=== PATIENT | female | born 1955 | race Caucasian/White ===

== ENCOUNTER → 2016-04-10 | Outpatient (CLI) | payer BC ==
[2016-04-10 11:03] LABS: ALT 35 U/L (9-52); AST 22 U/L (14-36); Alkaline Phosphatase 58 U/L (38-126); Anion Gap 10 mmol/L; Blood Urea Nitrogen 11 mg/dL (7-17); Calcium 9.4 mg/dL (8.4-10.2); Carbon Dioxide 31 mmol/L (22-30); Chloride 105 mmol/L (98-107); Glucose 85 mg/dL (74-99); Non-African American GFR(MDRD) >60 (>60 ml/min/1.73 sqM); Potassium 4.3 mmol/L (3.5-5.1); Sodium 146 mmol/L (137-145); Total Bilirubin 0.5 mg/dL (0.2-1.3); Total Protein 7.1 g/dL (6.3-8.2)
== END | disposition home or self-care (01) ==
LOC: LABWHC1 10:06
PROVIDERS: ATTEND Internal Medicine Endocrinology, Diabetes & Metabolism
DX: E03.9 Hypothyroidism, unspecified (principal); M85.80 Other specified disorders of bone density and structure, unspecified site
CPT/HCPCS: 36415; 80053; 82306; 84443

== ENCOUNTER → 2016-09-08 | Outpatient (CLI) | payer BC ==
--- NOTE | 2016-09-08 10:51 | CT ---
EXAMINATION TYPE: CT abdomen pelvis w con DATE OF EXAM: 09/08/2016 COMPARISON: 07/24/2014 HISTORY: Abdominal mass CT DLP: 888 mGycm Automated exposure control for dose reduction was used. CONTRAST: CT scan of the abdomen pelvis is performed with IV Contrast, patient injected with 100 ml mL of Omnip aque 300. FINDINGS- LUNG BASES- No significant abnormality is appreciated. LIVER/GB-stable hepatic lesions most typical of simple cysts. Previous cholecystectomy noted. PANCREAS- No gross abnormality is seen. SPLEEN- No gross abnormality is seen. ADRENALS- No gross abnormality is seen. KIDNEYS/BLADDER- no hydronephrosis nephrolithiasis or renal mass. BOWEL- no bowel dilatation. Normal appendix. LYMPH NODES- No greater than 1cm abdominal or pelvic lymph nodes are appreciated. OSSEOUS STRUCTURES- No significant abnormality is seen. OTHER- retroaortic left renal vein which is somewhat prominent in size IMPRESSION- 1. No acute process, stable hepatic lesions most typical of benign cysts.
== END | disposition home or self-care (01) ==
LOC: RADCTMAIN 09:34
PROVIDERS: ATTEND Internal Medicine Gastroenterology
DX: R19.00 Intra-abdominal and pelvic swelling, mass and lump, unspecified site (principal)
CPT/HCPCS: 74177; Q9967

== ENCOUNTER → 2016-10-09 | Outpatient (CLI) | payer BC ==
[2016-10-09 09:35] LABS: ALT 36 U/L (9-52); AST 26 U/L (14-36); Alkaline Phosphatase 60 U/L (38-126); Anion Gap 10 mmol/L; Blood Urea Nitrogen 15 mg/dL (7-17); Calcium 9.3 mg/dL (8.4-10.2); Carbon Dioxide 28 mmol/L (22-30); Chloride 106 mmol/L (98-107); Glucose 78 mg/dL (74-99); Non-African American GFR(MDRD) >60 (>60 ml/min/1.73 sqM); Potassium 4.1 mmol/L (3.5-5.1); Sodium 144 mmol/L (137-145); Total Bilirubin 0.5 mg/dL (0.2-1.3)
== END | disposition home or self-care (01) ==
LOC: LABWHC1 08:46
PROVIDERS: ATTEND Internal Medicine Endocrinology, Diabetes & Metabolism
DX: E03.8 Other specified hypothyroidism (principal); E87.0 Hyperosmolality and hypernatremia
CPT/HCPCS: 36415; 80053; 84443

== ENCOUNTER → 2017-02-22 | Outpatient (CLI) | payer BC ==
--- NOTE | 2017-02-27 07:13 | MM ---
Reason for exam: screening (asymptomatic). Last mammogram was performed 1 year and 3 months ago. History: Patient is postmenopausal. Implant Removal of both breasts, 1991. Took estrogen for 11 years beginning at age 43. Physical Findings: A clinical breast exam by your physician is recommended on an annual basis and results should be correlated with mammographic findings. MG Screening Mammo w CAD Bilateral CC and MLO view(s) were taken. Prior study comparison: December 07, 2015, bilateral MG screening mammo w CAD. February 09, 2014, bilateral MG screening mammo w CAD. There are scattered fibroglandular densities. Finding: There are stable typically benign dystrophic calcifications in the right breast. No suspicious abnormality. No significant changes in finding since December 07, 2015 and February 09, 2014. ASSESSMENT: Benign, BI-RAD 2 RECOMMENDATION: Routine screening mammogram of both breasts in 1 year.
== END | disposition home or self-care (01) ==
LOC: RADMAMWWP 14:53
PROVIDERS: ATTEND Obstetrics & Gynecology
DX: Z12.31 Encounter for screening mammogram for malignant neoplasm of breast (principal)

== ENCOUNTER → 2017-04-12 | Outpatient (CLI) | payer BC ==
[2017-04-12 10:12] LABS: ALT 23 U/L (9-52); AST 21 U/L (14-36); Albumin 4.1 g/dL (3.5-5.0); Alkaline Phosphatase 61 U/L (38-126); Anion Gap 10 mmol/L; Blood Urea Nitrogen 15 mg/dL (7-17); Calcium 9.7 mg/dL (8.4-10.2); Carbon Dioxide 30 mmol/L (22-30); Chloride 104 mmol/L (98-107); Glucose 93 mg/dL (74-99); Potassium 4.2 mmol/L (3.5-5.1); Sodium 144 mmol/L (137-145); Total Bilirubin 0.3 mg/dL (0.2-1.3); Total Protein 7.1 g/dL (6.3-8.2)
[2017-04-12 18:10] LABS: ACTH 8.06 pg/mL (0.00-45.99)
== END | disposition home or self-care (01) ==
LOC: LABWHC1 09:26
PROVIDERS: ATTEND Internal Medicine Endocrinology, Diabetes & Metabolism
DX: E87.0 Hyperosmolality and hypernatremia (principal); E03.8 Other specified hypothyroidism
CPT/HCPCS: 36415; 80053; 82024; 82533; 84146; 84443; 84588

== ENCOUNTER → 2017-04-25 | Outpatient (CLI) | payer BC ==
[2017-04-25 10:42] LABS: ALT 24 U/L (9-52); AST 19 U/L (14-36); Albumin 4.2 g/dL (3.5-5.0); Alkaline Phosphatase 61 U/L (38-126); Anion Gap 10 mmol/L; Blood Urea Nitrogen 18 mg/dL (7-17); Calcium 9.4 mg/dL (8.4-10.2); Carbon Dioxide 28 mmol/L (22-30); Chloride 104 mmol/L (98-107); Glucose 88 mg/dL (74-99); Potassium 4.1 mmol/L (3.5-5.1); Sodium 142 mmol/L (137-145); Total Bilirubin 0.3 mg/dL (0.2-1.3)
== END | disposition home or self-care (01) ==
LOC: LABWHC1 09:57
PROVIDERS: ATTEND Internal Medicine Endocrinology, Diabetes & Metabolism
DX: E03.8 Other specified hypothyroidism (principal); M85.89 Other specified disorders of bone density and structure, multiple sites; E87.0 Hyperosmolality and hypernatremia
CPT/HCPCS: 36415; 80053; 84588

== ENCOUNTER → 2017-05-14 | Outpatient (CLI) | payer BC ==
[2017-05-14 15:54] LABS: ALT 25 U/L (9-52); AST 22 U/L (14-36); Albumin 4.1 g/dL (3.5-5.0); Alkaline Phosphatase 60 U/L (38-126); Anion Gap 7 mmol/L; Blood Urea Nitrogen 15 mg/dL (7-17); Calcium 9.3 mg/dL (8.4-10.2); Carbon Dioxide 33 mmol/L (22-30); Chloride 102 mmol/L (98-107); Glucose 99 mg/dL (74-99); Potassium 4.2 mmol/L (3.5-5.1); Sodium 142 mmol/L (137-145); Total Bilirubin 0.3 mg/dL (0.2-1.3); Total Protein 6.9 g/dL (6.3-8.2)
== END | disposition home or self-care (01) ==
LOC: LABWHC1 15:06
PROVIDERS: ATTEND Internal Medicine Endocrinology, Diabetes & Metabolism
DX: E03.8 Other specified hypothyroidism (principal)
CPT/HCPCS: 36415; 80053

== ENCOUNTER → 2017-08-17 | Outpatient (CLI) | payer BC | END | disposition home or self-care (01) | LOC: LABWHC1 14:46 | PROVIDERS: ATTEND Internal Medicine Endocrinology, Diabetes & Metabolism | DX: E03.8 Other specified hypothyroidism (principal) | CPT/HCPCS: 36415; 84443 ==

== ENCOUNTER → 2017-08-20 | Outpatient (CLI) | payer BC ==
[2017-08-20 16:29] LABS: ALT 29 U/L (9-52); AST 25 U/L (14-36); Alkaline Phosphatase 57 U/L (38-126); Anion Gap 8 mmol/L; Blood Urea Nitrogen 15 mg/dL (7-17); Calcium 9.3 mg/dL (8.4-10.2); Carbon Dioxide 28 mmol/L (22-30); Chloride 106 mmol/L (98-107); Glucose 97 mg/dL (74-99); Potassium 4.4 mmol/L (3.5-5.1); Sodium 142 mmol/L (137-145); Total Bilirubin 0.2 mg/dL (0.2-1.3); Total Protein 6.7 g/dL (6.3-8.2)
== END | disposition home or self-care (01) ==
LOC: LABWHC1 15:37
PROVIDERS: ATTEND Internal Medicine Endocrinology, Diabetes & Metabolism
DX: E87.0 Hyperosmolality and hypernatremia (principal)
CPT/HCPCS: 36415; 80053

== ENCOUNTER → 2017-12-12 | Outpatient (CLI) | payer BC ==
[2017-12-12 12:19] LABS: ALT 25 U/L (9-52); AST 21 U/L (14-36); Albumin 4.3 g/dL (3.5-5.0); Alkaline Phosphatase 54 U/L (38-126); Anion Gap 10 mmol/L; Blood Urea Nitrogen 14 mg/dL (7-17); Calcium 9.5 mg/dL (8.4-10.2); Carbon Dioxide 30 mmol/L (22-30); Chloride 101 mmol/L (98-107); Glucose 96 mg/dL (74-99); Potassium 4.4 mmol/L (3.5-5.1); Sodium 141 mmol/L (137-145); Total Bilirubin 0.3 mg/dL (0.2-1.3); Total Protein 7.3 g/dL (6.3-8.2)
== END ==
LOC: LABWHC1 10:45
PROVIDERS: ATTEND Internal Medicine Endocrinology, Diabetes & Metabolism
DX: E03.8 Other specified hypothyroidism (principal); E87.0 Hyperosmolality and hypernatremia
CPT/HCPCS: 36415; 80053; 84443

== ENCOUNTER → 2017-12-22 | Outpatient (CLI) | payer BC ==
[2017-12-22 17:30] LABS: LDL Cholesterol,Calculated 100.4 mg/dL (0.0-131.0); VLDL Calculation 21.6 mg/dL (5.00-40.00)
== END ==
LOC: LABWHC1 09:55
PROVIDERS: ATTEND Family Medicine
DX: Z00.00 Encounter for general adult medical examination without abnormal findings (principal); E03.9 Hypothyroidism, unspecified; K58.1 Irritable bowel syndrome with constipation
CPT/HCPCS: 36415; 80061; 83735

== ENCOUNTER 2018-01-18 18:35 | Emergency (ER) | payer BC ==
--- NOTE | 2018-01-18 21:13 | ED ---
General Adult HPI - General Chief complaint: Head Injury Stated complaint: hit head/headache Time Seen by Provider: 01/18/18 20:11 Source: patient, family, RN notes reviewed, old records reviewed Mode of arrival: ambulatory Limitations: no limitations - History of Present Illness Initial comments: 62-year-old female presents with headache status post head injury which occurred yesterday. Patient struck her head on the tailgate of a minivan. There was no loss consciousness. No anticoagulation. Patient states the headache has persisted after this injury. She states he was "severe impact. She had a abrasion laceration which had some bleeding but has not bled in the past 12 hours. Denies vision changes. Denies focal numbness or weakness. She is also complaining of some neck pain after this injury. She has been ambulatory. No chronic medical problems. - Related Data Home Medications Medication Instructions Recorded Confirmed Albuterol Inhaler [Ventolin Hfa 1 - 2 puff INHALATION RT-Q6H PRN 02/11/17 Inhaler] Calcium Carbonate/Vitamin D3 1 tab PO DAILY 02/11/17 01/18/18 [Calcium 500-Vit D3 200 Tablet] Multivitamins, Thera [Multivitamin 1 tab PO DAILY 02/11/17 01/18/18 (formulary)] Levothyroxine Sodium [Synthroid] 25 mcg PO DAILY 01/18/18 01/18/18 Allergies Allergy/AdvReac Type Severity Reaction Status Date / Time carbidopa [From Sinemet] Allergy Rash/Hives Verified 01/18/18 20:19 gluten Allergy Unknown Verified 01/18/18 20:19 levodopa [From Sinemet] Allergy Rash/Hives Verified 01/18/18 20:19 neomycin Allergy Rash/Hives Verified 01/18/18 20:19 latex AdvReac Unknown Rash/Hives Verified 01/18/18 20:19 Penicillins AdvReac Unknown Rash/Hives Verified 01/18/18 20:19 theophylline AdvReac Rapid Verified 01/18/18 20:19 Heart Rate sinnate (chemical) Allergy Unknown Rash/Hives Uncoded 01/18/18 18:46 Review of Systems ROS Statement: Those systems with pertinent positive or pertinent negative responses have been documented in the HPI. ROS Other: All systems not noted in ROS Statement are negative. Past Medical History Past Medical History: Asthma Additional Past Medical History / Comment(s): PRE-CANCEROUS LESIONS REMOVED. 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 right wrist surgery to remove cyst Past Anesthesia/Blood Transfusion Reactions: No Reported Reaction Past Psychological History: No Psychological Hx Reported Smoking Status: Never smoker Past Alcohol Use History: Occasional Past Drug Use History: None Reported - Past Family History Father Family Medical History: Cancer General Exam Limitations: no limitations General appearance: alert, in no apparent distress Head exam: Present: normocephalic, other (Superficial laceration just inside the hairline frontal scalp no active bleeding no signs of infection) Eye exam: Present: normal appearance, PERRL, EOMI Neck exam: Present: tenderness (Paraspinal), full ROM Respiratory exam: Present: normal lung sounds bilaterally. Absent: respiratory distress, wheezes Cardiovascular Exam: Present: regular rate, normal rhythm GI/Abdominal exam: Present: soft. Absent: distended, tenderness Extremities exam: Present: normal inspection, normal capillary refill, pedal edema. Absent: calf tenderness Neurological exam: Present: alert, oriented X3, CN II-XII intact. Absent: motor sensory deficit Psychiatric exam: Present: normal affect, normal mood Skin exam: Present: warm, dry, intact. Absent: cyanosis, diaphoretic Course Vital Signs 01/18/18 18:44 Temperature 98.1 F Pulse Rate 77 Respiratory 18 Rate Blood Pressure 128/77 O2 Sat by Pulse 99 Oximetry Medical Decision Making - Medical Decision Making 62-year-old female head injury. Stable vitals, nonfocal neuro exam. Head CT negative for intracranial hemorrhage or mass effect, CT cervical spine negative for fracture subluxation. Patient will be discharged with outpatient follow-up. Disposition Clinical Impression: Concussion without loss of consciousness Disposition: HOME SELF-CARE Condition: Good Instructions: Concussion (ED) Is patient prescribed a controlled substance at d/c from ED?: No Referrals: Mahesh Maldonado MD [Primary Care Provider] - 1-2 days Time of Disposition: 21:47
--- NOTE | 2018-01-18 21:25 | CT ---
EXAMINATION TYPE: CT brain cspine wo con DATE OF EXAM: 01/18/2018 COMPARISON: CT brain and cervical spine February 11, 2017. HISTORY: Headache and neck pain after hitting head. CT DLP: 1211.1 mGycm. Automated Exposure Control for Dose Reduction was Utilized. TECHNIQUE: CT scan of the head and cervical spine are performed without contrast. FINDINGS: There is no acute intracranial hemorrhage, mass effect, or midline shift identified. The ventricles and sulci are within normal limits in size. The globes are intact and the visualized sin uses are clear. Patchy increased fluid signal posterior aspect left mastoid air cells is redemonstrat ed. The calvarium remains intact. Cervical spine is visualized in its entirety from C1 through upper thoracic levels and demonstrates s atisfactory alignment without evidence of acute fracture or dislocation. Prevertebral soft tissue ap pears within normal limits. The C1-C2 articulation is within normal limits on the coronal images. V ertebral body heights and disc space heights are maintained. No large posterior disc herniations are present. Axial images are felt within normal limits. There is mild calcified plaque left carotid bulb redemonstrated. Thyroid gland is somewhat small in size. Lung apices show mild pleural/parenchymal s carring. IMPRESSION: 1. There is no acute fracture or dislocation evident in the cervical spine. 2. No acute intracranial hemorrhage or midline shift is seen. No significant change from prior CT.
[2018-01-18] MEDS ORDERED: KETOROLAC 30 MG/ML 1 ML VIAL IM STA (21:38)
[2018-01-18 22:07] VITALS: BP 125/78; PULSE 78; RESP 19; TEMP 98.9
== END 2018-01-18 21:52 | disposition home or self-care (01) ==
LOC: EC 18:35
DX: S06.0X0A Concussion without loss of consciousness, initial encounter (principal); S01.01XA Laceration without foreign body of scalp, initial encounter; M54.2 Cervicalgia; J45.909 Unspecified asthma, uncomplicated; Z79.899 Other long term (current) drug therapy; Z88.8 Allergy status to other drugs, medicaments and biological substances; Z91.018 Allergy to other foods; Z88.1 Allergy status to other antibiotic agents; Z91.040 Latex allergy status; Z88.0 Allergy status to penicillin; V03.99XA Pedestrian with other conveyance injured in collision with car, pick-up truck or van, unspecified whether traffic or nontraffic accident, initial encounter; Y92.410 Unspecified street and highway as the place of occurrence of the external cause
CPT/HCPCS: 72125; 70450; 99284; 96372; J1885

== ENCOUNTER → 2018-02-22 | Outpatient (CLI) | payer BC ==
--- NOTE | 2018-02-22 16:54 | BD ---
EXAMINATION TYPE: Axial Bone Density DATE OF EXAM: 02/22/2018 COMPARISON: NONE CLINICAL HISTORY: Height: 62 Weight: 123.9 FRAX RISK QUESTIONS: Alcohol (3 or more units per day): no Family History (Parent hip fracture): no Glucocorticoids (More than 3mos): no (Ex: prednisone, prednisolone, methylprednisolone, dexamethasone, and hydrocortisone). History of Fracture in Adulthood: yes Secondary Osteoporosis: 1. Type 1 Diabetes: no 2. Hyperthyroidism: no 3. Menopause before 45: yes 4. Malnutrition: yes 5. Chronic liver disease: no Rheumatoid Arthritis: no Current Tobacco Use: no RISK FACTORS HISTORY OF: Spine Fracture: t spine History of Wrist Fracture: right wrist When: 25 years ago Family History of Osteoporosis: yes Active: yes Diet low in dairy products/other sources of calcium: no Postmenopausal woman: hysterectomy age 43 Lost more than 2 inches in height since high school: no MEDICATIONS: interosa , ventalin, desapin Thyroid Medications: levothyroxine How Lon years Additional History: EXAM MEASUREMENTS: Bone mineral densitometry was performed using the [employer] System. Bone mineral density as measured about the Lumbar spine is: ----- L1-L4(G/cm2): 1.021 T Score Values are as follows: ----- L2: -1.1 ----- L3: -1.3 ----- L4: -1.7 ----- L1-L4: -1.3 Bone mineral density has: decreased -1.4 % since study of: 01.31.2016 Bone mineral density about the R hip (g/cm2): 0.788 Bone mineral density about the L hip (g/cm2): 0.757 T Score values are as follows: -----R Neck: -1.8 -----L Neck: -2.0 -----R Total: -1.2 -----L Total: -1.4 Bone mineral density has: decreased -4.1 % since study of: 01.31.2016 IMPRESSION: Osteopenia (T Score between -2.5 and -1). There is slightly increased risk of fracture and the patient may be considered for treatment. Re-Screen 2-5 years. NOTE: T-SCORE=SD OF THE YOUNG ADULT MEAN.
--- NOTE | 2018-02-27 08:59 | MM ---
Reason for exam: screening (asymptomatic). Last mammogram was performed 1 year ago. History: Patient is postmenopausal. Implant Removal of both breasts, 1991. Took estrogen for 11 years beginning at age 43. Physical Findings: A clinical breast exam by your physician is recommended on an annual basis and results should be correlated with mammographic findings. MG 3D Screening Mammo W/Cad Bilateral CC and MLO view(s) were taken. Prior study comparison: February 22, 2017, bilateral MG screening mammo w CAD. December 07, 2015, bilateral MG screening mammo w CAD. There are scattered fibroglandular densities. Course dystrophic calcifications posterior right breast unchanged. No significant changes when compared with prior studies. ASSESSMENT: Negative, BI-RAD 1 RECOMMENDATION: Routine screening mammogram of both breasts in 1 year.
== END | disposition home or self-care (01) ==
LOC: RADBDWWP 10:33
PROVIDERS: ATTEND Obstetrics & Gynecology
DX: Z12.31 Encounter for screening mammogram for malignant neoplasm of breast (principal); M85.80 Other specified disorders of bone density and structure, unspecified site
CPT/HCPCS: 77063; 77067; 77080

== ENCOUNTER → 2018-03-19 | Outpatient (CLI) | payer BC ==
--- NOTE | 2018-03-19 09:24 | US ---
EXAMINATION TYPE: US pelvic complete DATE OF EXAM: 03/19/2018 COMPARISON: CT 2017 CLINICAL HISTORY: RLQ Pain R10.31. Total hysterectomy, oophorectomy; RLQ pain; gluten allergy TECHNIQUE: Transabdominal (TA). Transabdominal sonographic images of the pelvis were acquired. Date of LMP: 1989 02. Bladder: partially distended; bilateral ureteral jets not seen after 3 minutes 2. Posterior cul-de-sac: wnl 3. Bilateral adnexa: appears wnl 4. Bowel peristalsing is noted at patient's RLQ pain. Poorly distended bladder which is thus suboptimally evaluated. No free fluid in pelvis is present. Di stal ureter jets are not identified on images saved. Scanning of pelvis shows no suspicious solid or cystic mass. Area of pain shows pulsating bowel loops during real-time scanning per technologist. Last images of vaginal cuff show no suspicious abnormali ty. IMPRESSION: As above, no suspicious abnormality seen on limited pelvic ultrasound to account for allen ent's symptoms
--- NOTE | 2018-03-19 09:27 | US ---
EXAMINATION TYPE: US abdomen complete DATE OF EXAM: 03/19/2018 COMPARISON: CT 2017. CLINICAL HISTORY: RLQ Pain R10.31. epigastric pressure, gluten allergy EXAM MEASUREMENTS: Liver Length: 15.1 cm Gallbladder Wall: surgically removed CBD: 0.6 cm Spleen: 10.0 cm Right Kidney: 9.9 x 5.7 x 4.4 cm Left Kidney: 10.2 x 5.2 x 4.2 cm Pancreas: wnl Liver: couple of right lobe cysts are seen with larger cyst = 0.9 x 1.1 x 0.7cm Gallbladder: surgically removed Evidence for sonographic Short's sign: no CBD: wnl Spleen: wnl Right Kidney: No hydronephrosis or masses seen Left Kidney: No hydronephrosis or masses seen Upper IVC: wnl Abd Aorta: ectatic appearance superiorly, but size is wnl The visualized liver is homogenous. Technologist rasheed a couple of small thin-walled cysts scattered throughout the liver which correlate with CT. The intrahepatic portion of the IVC and visualized pro ximal, mid, and distal abdominal aorta through bifurcation are within normal limits. Gallbladder is n oted surgically absent. Common bile duct is unremarkable after cholecystectomy. The visualized porti ons of the pancreas are homogenous. The spleen is unremarkable. Kidneys are symmetric and free of h ydronephrosis. No renal lesions are seen. IMPRESSION: No suspicious finding is seen to account for patient's symptoms of right lower quadrant p ain and epigastric pressure.
== END ==
LOC: RADUSWWP 08:15
PROVIDERS: ATTEND Internal Medicine Gastroenterology
DX: R10.31 Right lower quadrant pain (principal)
CPT/HCPCS: 76700; 76857

== ENCOUNTER → 2018-03-27 | Outpatient (CLI) | payer BC ==
[2018-03-27 14:12] LABS: Basophils # (A) 0.1 k/uL (0-0.2); Basophils % (A) 1 %; Eosinophils # (A) 0.1 k/uL (0-0.7); Eosinophils % (A) 2 %; HCT 41.2 % (34.0-46.0); HGB 13.2 gm/dL (11.4-16.0); Lymphocytes # (A) 1.5 k/uL (1.0-4.8); Lymphocytes % (A) 24 %; MCH 29.9 pg (25.0-35.0); MCHC 32.1 g/dL (31.0-37.0); MCV 93.4 fL (80.0-100.0); Mean Platelet Volume 7.4; Monocytes # (A) 0.5 k/uL (0-1.0); Monocytes % (A) 8 %; Neutrophils # (A) 3.9 k/uL (1.3-7.7); Neutrophils % (A) 63 %; Platelet Count 218 k/uL (150-450); RBC 4.41 m/uL (3.80-5.40); RDW 12.4 % (11.5-15.5); WBC 6.2 k/uL (3.8-10.6)
[2018-03-27 19:19] LABS: Iron Saturation 24.79 (12.00-45.00)
== END | disposition home or self-care (01) ==
LOC: LABWHC1 13:30
PROVIDERS: ATTEND Internal Medicine Gastroenterology
DX: R53.83 Other fatigue (principal)
CPT/HCPCS: 36415; 82728; 83540; 83550; 84443; 85025

== ENCOUNTER → 2018-05-13 | Outpatient (CLI) | payer BC | END | disposition home or self-care (01) | LOC: LABWHC1 14:00 | PROVIDERS: ATTEND Internal Medicine Endocrinology, Diabetes & Metabolism | DX: E03.8 Other specified hypothyroidism (principal) | CPT/HCPCS: 36415; 84443 ==

== ENCOUNTER → 2018-08-20 | Outpatient (CLI) | payer BC ==
[2018-08-20 16:32] LABS: African American GFR (CKD) 106.9 (60.0-200.0); Albumin 4.3 g/dL (3.80-4.90); Albumin/Globulin Ratio 1.87 (1.60-3.17); BUN/Creat Ratio 17.14 Ratio (12.00-20.00); Calcium 9.5 mg/dL (8.7-10.3); Globulin 2.3 g/dL (1.6-3.3); Potassium 4.1 mmol/L (3.5-5.5); Total Bilirubin 0.4 mg/dL (0.3-1.2); Total Protein 6.6 g/dL (6.2-8.2)
== END | disposition home or self-care (01) ==
LOC: LABWHC1 10:55
PROVIDERS: ATTEND Internal Medicine Endocrinology, Diabetes & Metabolism
DX: E03.8 Other specified hypothyroidism (principal)
CPT/HCPCS: 36415; 80053; 84443

== ENCOUNTER 2021-08-03 09:43 | Day surgery (SDC) | payer BC, MEDICARE ==
[2021-08-03 10:24] VITALS: TEMP 98.1
[2021-08-03] MEDS ORDERED: LACTATED RINGERS 1,000 ML IV ONE ×2 (10:24)
[2021-08-03] MEDS ORDERED: PROPOFOL 10 MG/ML 20 ML VIAL IV ONE (11:47)
--- NOTE | 2021-08-03 11:58 | P.PCN ---
Date of Procedure: 08/03/21 Procedure(s) Performed: BRIEF HISTORY: Patient is a [id number], pleasant, white female scheduled for an upper endoscopy as a part of evaluation of severe epigastric pain for the last few weeks duration. She went to the emergency room last week and a CT of abdomen and pelvis was unremarkable. She was started on Prilosec 20 mg daily. Because of the persistent severe epigastric pain she is scheduled for an upper endoscopy to evaluate for. PROCEDURE PERFORMED: Esophagogastroduodenoscopy with biopsy. PREOPERATIVE DIAGNOSIS: Severe epigastric pain of 3 weeks' duration. IV sedation per anesthesia. PROCEDURE: After informed consent was obtained, the patient was brought into the endoscopy unit. IV sedation was administered by Anesthesia under continuous monitoring. Initially the Olympus GIF-140 video endoscope was inserted into the mouth. Esophagus intubated without any difficulty. It was gradually advanced into the stomach and duodenum and carefully examined. The bulb and the second part of the duodenum appeared normal. The scope at this time was withdrawn to the stomach, adequately insufflated with air, and upon careful examination, mucosa of the antrum, body, diffuse gastritis and biopsies were done from this area. The cardia and the fundus appeared normal. The scope was then withdrawn into the esophagus. The GE junction was located at 39 cm from the incisors. Circumferential erythema the GE junction consistent with LA grade B reflux esophagitis. Rest of esophagus appeared normal and the patient tolerated the procedure well. IMPRESSION: 1. Diffuse erythema of the antrum and distal body consistent with gastritis 2. Circumferential erythema the GE junction consistent with LA grade a reflux esophagitis and small hiatal hernia. RECOMMENDATIONS: The findings of this examination were discussed with the patient is a family. She was advised to follow with the biopsy results. She will continue with omeprazole 20 mg daily and continue to follow antireflux measures. She will be seen back in office in 3-4 weeks..
[2021-08-03 12:12] VITALS: BP 133/70
[2021-08-03 12:21] VITALS: PULSE 81; RESP 16
== END 2021-08-03 12:52 | disposition home or self-care (01) ==
LOC: ORWHC2ENDO 09:43
PROVIDERS: ATTEND Internal Medicine Gastroenterology
DX: K29.50 Unspecified chronic gastritis without bleeding (principal); K21.00 Gastro-esophageal reflux disease with esophagitis, without bleeding
CPT/HCPCS: 43239; 88305; 88342; J2704

== ENCOUNTER 2024-03-03 06:17 | Day surgery (SDC) | payer MEDICARE ==
[2024-02-25 14:54] VITALS: BMI 19.8
[~2024-03-03 06:17] MED LIST: LACTATED RINGERS 1,000 ML IV SCH
[2024-03-03] MEDS: SODIUM CHLORIDE 0.9% 500 ML 500 ML IV ONE (07:11)
[2024-03-03] MEDS ORDERED: LIDOCAINE 1% INJ 10MG/ML (20 ML MDV) ONE (07:12)
[2024-03-03] MEDS ORDERED: PROPOFOL 10 MG/ML 20 ML VIAL IV ONE (07:12)
[2024-03-03 07:17] VITALS: TEMP 98.3
[2024-03-03 07:45] VITALS: RESP 16
[2024-03-03 07:54] VITALS: BP 113/67; PULSE 78
[2024-03-03 08:00] LABS: Basophils # (A) 0.1 k/uL (0-0.2); Basophils % (A) 1 %; Eosinophils # (A) 0.5 k/uL (0-0.7); Eosinophils % (A) 10 %; HCT 33.2 % (34.0-46.0); HGB 11.6 gm/dL (11.4-16.0); Lymphocytes # (A) 1.5 k/uL (1.0-4.8); Lymphocytes % (A) 33 %; MCH 30.8 pg (25.0-35.0); MCHC 34.9 g/dL (31.0-37.0); MCV 88.5 fL (80.0-100.0); Monocytes # (A) 0.3 k/uL (0-1.0); Monocytes % (A) 6 %; Neutrophils # (A) 2.1 k/uL (1.3-7.7); Neutrophils % (A) 47 %; Platelet Count 239 k/uL (150-450); RBC 3.75 m/uL (3.80-5.40); RDW 13.8 % (11.5-15.5); Reticulocyte % 1.9 % (0.5-2.0); WBC 4.6 k/uL (3.8-10.6)
--- NOTE | 2024-03-03 08:03 | OP ---
OPERATIVE REPORT DATE OF SERVICE : PROCEDURE PERFORMED: Bone marrow biopsy with local and general sedation. DESCRIPTION OF PROCEDURE: After being placed in the left lateral decubitus position, the right posterior iliac spine was palpated, followed by palpation of the right posterior iliac crest was performed. Following administration of general sedation, this area was sterilized with three swabs of Betadine and three swabs of alcohol, followed by placement of sterile drape, 10 mL of 1% lidocaine was then applied to the periosteum. A 0.3 cm incision was then made into the subcutaneous tissue, a 4-inch Jamshidi needle was then advanced through the periosteum into the bone marrow, approximately 18 mL of aspirate was obtained along with a 1.2 cm core sample. She tolerated the procedure well without any complications and had less than 1 mL of blood loss. She returned to the postoperative area in stable condition. Samples obtained today will be sent for morphology, flow cytometry, and FISH. We will follow up on the results in clinic. MMODL / IJN: [id number] /
[2024-03-03 08:39] LABS: RBC Morphology Normal
== END 2024-03-03 08:10 ==
LOC: OR 06:17
PROVIDERS: ATTEND Internal Medicine
DX: D64.89 Other specified anemias (principal); J45.909 Unspecified asthma, uncomplicated; K90.0 Celiac disease; E03.9 Hypothyroidism, unspecified; E87.1 Hypo-osmolality and hyponatremia; M25.551 Pain in right hip; M35.08 Sjogren syndrome with gastrointestinal involvement; H67.1 Otitis media in diseases classified elsewhere, right ear; Z90.49 Acquired absence of other specified parts of digestive tract; Z98.890 Other specified postprocedural states; Z90.710 Acquired absence of both cervix and uterus; Z79.890 Hormone replacement therapy; Z88.0 Allergy status to penicillin; Z88.1 Allergy status to other antibiotic agents; Z91.040 Latex allergy status; Z88.8 Allergy status to other drugs, medicaments and biological substances
CPT/HCPCS: 85025; 85045; 38222; J2003; J2704